=== PATIENT | female | born 1980 | race Caucasian/White ===

== ENCOUNTER 2023-07-06 08:36 | Outpatient (CLI) | payer BC, SELFPAY ==
--- NOTE | ~2023-07-06 | MMUS_ITS ---
EXAMINATION: MM diagnostic dorothy BI w gaurav, US breast BI complete HISTORY: Diagnostic mammogram requested at outside institution. No prior studies available for compar douglas. TECHNIQUE: Additional 3-D tomosynthesis images of the breasts were performed and synthetic 2-D images were generated. CAD analysis was submitted and interpreted. High resolution bilateral complete breas t ultrasound was performed. COMPARISON: No prior studies for comparison. BREAST PARENCHYMAL COMPOSITION: The breasts are heterogeneously dense, which may obscure small masses FINDINGS: MAMMOGRAPHIC FINDINGS: There is no mammographic evidence for malignancy in the right breast. There is a partially circumscri bed mass in the lower central aspect of the left breast posteriorly. There is a second circumscribed mass in the upper outer quadrant of the left breast, middle third. ULTRASOUND: Complete bilateral US of all 4 quadrants of the breasts and retroareolar region was reviewed. Right breast: At 7:00, 4 cm from the nipple there is a 6 mm cyst. In the subareolar location the righ t breast there is an oval hypoechoic mass with enhanced through transmission, parallel orientation an d no internal vascularity measuring 5 mm. Left breast: At 12:00 near the nipple there is a 3 mm cyst. At 1:00, 4 cm from the nipple, there is a septated 1.3 cm cyst. At 3:00, 2 cm from the nipple, there is a 8 mm cyst. At 4:00, 3 cm from the ni pple, there is a 1 cm cyst. At 9:00 near the nipple there is a 8 mm cyst. No suspicious sonographic m asses in the left breast. IMPRESSION: 1. Probable benign right breast mass in the subareolar location measuring 5 mm. No evidence for malig kevin in the left breast. 2. Recommend 6 month follow-up Limited right breast ultrasound BI-RADS category 3, probably benign findings. Reviewed, dictated and finalized at location [facility] IMPRESSION: 1. Probable benign right breast mass in the subareolar location measuring 5 mm. No evidence for malignancy in the left breast. 2. Recommend 6 month follow-up Limited right breast ultrasound BI-RADS category 3, probably benign findings.
== END 2023-07-06 08:37 | disposition home or self-care (01) ==
LOC: CHSIMG 08:42
DX: R92.8 Other abnormal and inconclusive findings on diagnostic imaging of breast (principal)
CPT/HCPCS: 76641; 77062; 77066; G0279

== ENCOUNTER 2024-08-25 10:29 | Outpatient (CLI) | payer BC, SELFPAY ==
--- NOTE | ~2024-08-25 | MMUS_ITS ---
EXAMINATION: MM diagnostic dorothy BI w gaurav, US breast RT limited HISTORY: Probable benign 5 mm right breast mass TECHNIQUE: 3-D tomosynthesis images of the breasts were performed and synthetic 2-D images were gener ated. CAD analysis was submitted and interpreted. High resolution limited right breast ultrasound was performed. COMPARISON: 07/06/2023 BREAST PARENCHYMAL COMPOSITION:Dense: The breasts are heterogeneously dense, which may obscure small masses. FINDINGS: MAMMOGRAPHIC FINDINGS: Previously identified cysts in the left breast are mildly decreased overall from prior exam. No suspi cious mass lesions in either breast. No suspicious microcalcification. ULTRASOUND: Stable 5 mm hypoechoic round masslike area at the right breast subareolar region. No posterior shadow ing. IMPRESSION: Stable 5 mm round hypoechoic area at the right subareolar region. Stability is compatible with benig nity. Return to screening mammography advised. BI-RADS Category 2: Benign finding(s). Reviewed, dictated and finalized at location . [employer] IMPRESSION: Stable 5 mm round hypoechoic area at the right subareolar region. Stability is compatible with benignity. Return to screening mammography advised. BI-RADS Category 2: Benign finding(s).
== END 2024-08-25 10:30 | disposition home or self-care (01) ==
LOC: CHSIMG 10:32
PROVIDERS: PCP Nurse Practitioner Family; Visit Provider Nurse Practitioner Family
DX: R92.8 Other abnormal and inconclusive findings on diagnostic imaging of breast (principal)
CPT/HCPCS: 76642; 77062; 77066; G0279